=== PATIENT | female | born 1980 | race Caucasian/White ===

== ENCOUNTER 2017-11-19 07:59 | Outpatient (CLI) | payer BC ==
[~2017-11-19] VITALS: Ht 154.9 cm; Wt 46.3 kg
[2017-11-19 08:15] VITALS: BP 110/66
[2017-11-19 08:56] LABS: BASOPHILS % (AUTO) 0 % (0-10); EOSINOPHILS # (AUTO) 0.1 10^3/uL (0.0-0.3); EOSINOPHILS % (AUTO) 2 % (0-10); HEMATOCRIT 41 % (35-52); HEMOGLOBIN 13.7 G/DL (11.5-16.0); LYMPHOCYTES # (AUTO) 1.6 X 10^3 (1.0-4.0); LYMPHOCYTES % (AUTO) 28 % (12-44); MEAN CORPUSCULAR HEMOGLOBIN 29 PG (25-34); MEAN CORPUSCULAR HGB CONC 34 G/DL (32-36); MEAN CORPUSCULAR VOLUME 87 FL (80-99); MEAN PLATELET VOLUME 10.4 FL (7.4-10.4); MONOCYTES # (AUTO) 0.5 X 10^3 (0.0-1.0); MONOCYTES % (AUTO) 8 % (0-12); NEUTROPHILS # (AUTO) 3.6 X 10^3 (1.8-7.8); NEUTROPHILS % (AUTO) 62 % (42-75); PLATELET COUNT 265 10^3/uL (130-400); RED CELL DISTRIBUTION WIDTH 12.8 % (10.0-14.5); WHITE BLOOD COUNT 5.8 10^3/uL (4.3-11.0)
[2017-11-19] MEDS ORDERED: LORA1TAB PO (09:00)
[2017-11-19] MEDS ORDERED: ATEN25TA PO (09:00)
[2017-11-19] MEDS ORDERED: DOCU-143 PO (09:00)
[2017-11-19] MEDS ORDERED: PLEC3TAB PO (09:00)
[2017-11-19] MEDS ORDERED: MULT-974 PO (09:00)
[2017-11-19] MEDS ORDERED: ONDN4T PO (09:00)
[2017-11-19] MEDS ORDERED: LACT1CAP74 PO (09:00)
[2017-11-19] MEDS ORDERED: BCP PO (09:00)
[2017-12-01] MEDS ORDERED: IBUP-844 PO (10:22)
[2017-12-01] MEDS ORDERED: ACHD5005 PO (10:22)
== END 2017-11-19 08:25 | disposition home or self-care (01) ==
LOC: PREOP 07:59
PROVIDERS: ATTEND Obstetrics & Gynecology
DX: Z01.812 Encounter for preprocedural laboratory examination (principal); Z11.2 Encounter for screening for other bacterial diseases; R10.31 Right lower quadrant pain
CPT/HCPCS: 36415; 85025; 87081

== ENCOUNTER 2017-12-01 06:00 | Day surgery (SDC) | payer BC ==
[~2017-12-01] VITALS: Ht 154.9 cm; Wt 46.3 kg
[~2017-12-01 06:00] MED LIST: ATEN25TA PO; BCP PO; DOCU-143 PO; LACT1CAP74 PO; LORA1TAB PO; MULT-974 PO; ONDN4T PO; PLEC3TAB PO
[2017-12-01 06:20] VITALS: BP 121/62
[2017-12-01] MEDS ORDERED: FAMOTIDINE 20MG/2ML IV (PEPCID) ONE (06:29)
[2017-12-01] MEDS ORDERED: SCOPOLAMINE 1.5 MG (TRANSDERM-SCOP) PATCH ONE (06:29)
[2017-12-01] MEDS ORDERED: NS (IVPB) 50 ML ONE (06:29)
[2017-12-01] MEDS ORDERED: ONDANSETRON 4 MG/2 ML (SDV) Z0FRAN ONE ×2 (06:29→08:05)
[2017-12-01] MEDS ORDERED: ceFAZolin 1,000 MG (ANCEF) VIAL ONE (06:29)
[2017-12-01] MEDS: LACTATED RINGERS 1,000 ML IV PRN ×3 (06:53→10:07)
[2017-12-01] MEDS ORDERED: ceFAZolin INJECTION 1,000 MG in NS (IVPB) 50 ML IV ONE (07:00)
[2017-12-01] MEDS ORDERED: SCOPOLAMINE 1.5 MG (TRANSDERM-SCOP) PATCH TOP ONE (07:15)
[2017-12-01] MEDS ORDERED: ONDANSETRON 4 MG/2 ML (SDV) Z0FRAN IV ONE (07:15)
[2017-12-01] MEDS ORDERED: FAMOTIDINE 20MG/2ML IV (PEPCID) IV ONE (07:15)
[2017-12-01] MEDS ORDERED: morphine INJ 10 MG/ML 1ML (SYR OR VIAL) ONE (07:15)
[2017-12-01] MEDS ORDERED: MIDAZOLAM 2 MG/2 ML (VERSED) VIAL ONE (07:18)
[2017-12-01] MEDS ORDERED: BUP/EPI 0.5% 1:200,000 (SENSORCAINE) 30 ML VIAL ONE (07:33)
[2017-12-01] MEDS ORDERED: NS (IVPB) 0 ML ONE (07:33)
[2017-12-01] MEDS ORDERED: VASOPRESSIN INJECTION 20 UNIT/ML VIAL ONE (07:33)
--- NOTE | 2017-12-01 07:47 | Progress Note-Pre Operative ---
Pre-Operative Progress Note H&P Reviewed The H&P was reviewed, patient examined and no changes noted. Date Seen by Provider: Dec 01, 2017 Time Seen by Provider: 07:30 Date H&P Reviewed: Dec 01, 2017 Time H&P Reviewed: 07:30 Pre-Operative Diagnosis: chronic pelvic pain, right lower quadrant pain, endometriosis RENU FERMIN DO Dec 01, 2017 07:47
[2017-12-01] MEDS ORDERED: LIDOCAINE PF 2% 5 ML (XYLOCAINE) VIAL ONE (08:05)
[2017-12-01] MEDS ORDERED: LIDOCAINE JELLY 2% (XYLOCAINE) 5 ML TUBE ONE (08:05)
[2017-12-01] MEDS ORDERED: proPOfol 200 MG/20 ML (DIPRIVAN) VIAL IV ONE (08:05)
[2017-12-01] MEDS ORDERED: ROCURONIUM 10 MG/ML 5 ML SYRINGE IV ONE (08:05)
[2017-12-01] MEDS ORDERED: SEVOFLURANE (ULTANE) 15 ML INHAL SOLN ONE ×9 (08:05→09:55)
[2017-12-01] MEDS ORDERED: GLYCOPYRROLATE 0.2 MG/ML (ROBINUL) 2 ML VIAL ONE (09:43)
[2017-12-01] MEDS ORDERED: NEOSTIGMINE 1 MG/ML 5 ML SYRINGE ONE (09:43)
[2017-12-01] MEDS ORDERED: HYDROmorphone 1 MG/ML (DILAUDID) 1 ML SYRINGE IV PRN (09:45)
[2017-12-01] MEDS ORDERED: MEPERIDINE (DEMEROL) INJ 50 MG/ML IVP PRN (09:45)
[2017-12-01] MEDS ORDERED: HYDROcodone/APAP 5 MG/325 MG (LORTAB) TAB PO PRN (10:00)
[2017-12-01] MEDS ORDERED: KETOROLAC 30 MG/ML VIAL IVP ONE ×2 (10:00)
[2017-12-01] MEDS ORDERED: ONDANSETRON 4 MG/2 ML (SDV) Z0FRAN IVP PRN (10:00)
--- NOTE | 2017-12-01 10:01 | Discharge Inst-Women's Service ---
Discharge Inst-Women's Serv Depart Medication/Instructions New, Converted or Re-Newed RX: RX on Chart Instructions no swimming, bathing (may shower) until incisions are healed Continue OCPs at least another 4 months may have light bleeding, spotting for up to 7-10 days Final Diagnosis endometriosis enteropelvic adhesions Consults/Follow Up Additional Follow Up: Yes (1 week with incision check) Activity Activity: Activity as Tolerated Driving Instructions: No Driving for 24 Hours NO SMOKING: NO SMOKING Nothing Inside Vagina: No Douching Diet Discharge Diet: No Restrictions Symptoms to Report to : Bleeding Excessive, Pain Increased, Fever Over 101 Degrees F, Vaginal Bleeding Increase, Vaginal Discharge Foul, Questions/Concerns For Any Problems or Questions: Contact Your Physician Skin/Wound Care Infection Signs and Symptoms: Increased Redness, Foul Odor of Wound, Increased Drainage, Skin Itchy or Has a Rash, Increased Swelling, Temperature Above 101 F Operative Area Clean and Dry: Keep Incision Clean/Dry Stitches/Lidya/Dermabond: Dermabond Bathing Instructions: RENU Perez DO Dec 01, 2017 10:01
--- NOTE | 2017-12-01 10:03 | Operative Report ---
Operative Report Date of Procedure/Surgery Dec 01, 2017 Surgeon (s) RENU FERMIN DO Assigner (s): Jade Russo, BUSINESS MGR; asst nec to retract important neurovas structures. Post-Operative Diagnosis Endometriosis, probable blocked right tube, subserosal fibroid Procedure Performed Laparoscopy, with resection and fulgeration of endometriosis, myolysis of fibroid, chromotubation, appendectomy, indicated Description of Procedure Anesthesia Type: General Estimated blood loss (mL): minimal Specimen(s) collected/removed peritoneal biopsy, appendix Description of the Procedure With informed consent the patient was taken to the operating room where general anesthesia was found to be adequate. She was prepped and draped in the usual sterile fashion in the dorsolithotomy position. The bladder was drained with a straight cath of clear yellow urine. A speculum was placed in the vagina and the anterior lip of the cervix was grasped with a tenaculum and a uterine manipulator was inserted. Attention was turned to the abdomen. The umbilicus was injected with 0.5% Marcaine and a 5 mm skin incision was made. A Veress needle was inserted and intraabdominal placement was confirmed with a saline drop test and a drop in pressure. The abdomen was insufflated to a maximum pressure of 15 mmHg. A 5 mm trocar was inserted under direct visualization with an Optiview. A survey of the pelvis revealed the above mentioned findings. I now placed two additional 5 mm trocars, lateral to the rectus muscles and avoiding the inferior epigastric vessels. There was a small fibroid in the left fundus near the right tube (submucosal) was lysed with cautery. This did not involve the tube. There was endometriosis in the posterior culdesac and this was elevated and excised. Anything that could not be excised was fulgurated. There was endometriosis on the uterosacral ligaments bilaterally. There was endometriosis in the right ovarian fossa. The ovary was elevated and endometriotic fluid flowed out, indicating an endometrioma. This was fulgurated. The pelvis was now irrigated. I now performed a chromotubation. The left tube spilled easily and quickly. The right tube did not spill. I then blocked the left tube and the right tube still did not flow. There was tubal blockage noted at the cornu and I could not get the dye to flow past the first cm of the tube despite maneuvers. There were adhesions of the bowel overlying the appendix. These were now taken down in a blunt and sharp fashion. The appendix had adhesions on the tip and was tense but did not appear infected. There was likely endometriosis near and surrounding the appendix. An appendectomy was now done. I took down the bowel adhesions and then the appendiceal adhesions with the fabián. I now clamped across the base of the appendix with an endo-JIMMIE. A second endo-JIMMIE was used and the appendix was removed. I now extended the left lower quadrant incision and inserted a 10-12 trocar and removed the appendix with the EndoCatch. The pelvis was now irrigated again. The instruments were removed from the abdomen and the vagina. The fascial incision was closed with a figure of eight stitch of 0-Vicryl and the skin closed with 4-0 Monocryl and swiftset. The patient was taken to the recovery room where general anesthesia was found to be adequate. Sponge, lap, needle and instrument counts were correct times two. Findings of the Procedure There was blood/endometrial tissue flowing from the left tube into the pelvis. There was a small (sub centimeter) subserosal fibroid in the right fundal portion of the uterus near the tube. There was endometriosis noted in the culdesac and along the right (mainly) and left uterosacral ligaments. There was endometriosis and scarring with endometrioma in the right ovarian fossa. There were adhesions in the left pelvis/abdomen near the appendix consistent with chronic appendicitis. The appendix appeared tense, but not infected. The left tube spilled easily, indicating patency. The right tube did not spill , indicating probable blockage of the right tube. Allergies and Home Medications Allergies Coded Allergies: fentanyl (Verified Allergy, Unknown, SHORTNESS OF BREATH, 11/19/17) Home Medications Atenolol 25 Mg Tablet, 12.5 MG PO DAILY, (Reported) TAKE 1/2 OF 25MG TAB Docusate Sodium 100 Mg Capsule, 500 MG PO DAILY, (Reported) Hydrocodone Bit/Acetaminophen 1 Tab Tab, 1 TAB PO Q4H PRN for PAIN-MODERATE Prescribed by: RENU FERMIN on 12/01/17 1022 Ibuprofen 600 Mg Tablet, 600 MG PO Q6HR Prescribed by: RENU FERMIN on 12/01/17 1022 Lactobacillus Combination No.4 1 Each Capsule, 1 EACH PO DAILY, (Reported) Lorazepam 1 Mg Tablet, 1 MG PO BID PRN for ANXIETY, (Reported) Multivitamin 1 Each Tablet, 1 EACH PO DAILY, (Reported) Ondansetron HCl 4 Mg Tab, 4 MG PO Q6H PRN for NAUSEA/VOMITING-1ST LINE, ( Reported) Plecanatide 3 Mg Tablet, 3 MG PO DAILY PRN for CONSTIPATION-1ST LINE, (Reported) [Bcp] , 1 TAB PO DAILY, (Reported) Patient Home Medication List Home Medication List Reviewed: Yes RENU FERMIN DO Dec 01, 2017 10:03
[2017-12-01] MEDS: ONDANSETRON 4 MG/2 ML (SDV) Z0FRAN IVP PRN ×2 (10:05→10:24)
[2017-12-01] MEDS: morphine INJ 10 MG/ML 1ML (SYR OR VIAL) IVP PRN ×2 (10:07→10:24)
[2017-12-01] MEDS ORDERED: ACHD5005 PO (10:22)
[2017-12-01] MEDS ORDERED: IBUP-844 PO (10:22)
--- NOTE | 2017-12-01 10:24 | Anesthesia-General Post-Op ---
General Patient Condition Mental Status/LOC: Same as Preop Cardiovascular: Satisfactory Nausea/Vomiting: Absent Respiratory: Satisfactory Pain: Controlled Complications: Absent Post Op Complications Complications None Follow Up Care/Instructions Patient Instructions None needed. Anesthesia/Patient Condition Patient Condition Patient is doing well, no complaints, stable vital signs, no apparent adverse anesthesia problems. No complications reported per nursing. ROXANA DUBOIS CRNA Dec 01, 2017 10:24
[2017-12-01 10:55] VITALS: BP 109/53
[2017-12-01 11:25] VITALS: BP 96/59
[2017-12-01 11:55] VITALS: BP 106/54
[2017-12-01] MEDS ORDERED: IBUPROFEN 600 MG (MOTRIN) TAB PO SCH (16:00)
== END 2017-12-01 13:21 | disposition home or self-care (01) ==
LOC: SDC 06:00
PROVIDERS: ATTEND Obstetrics & Gynecology
DX: N80.1 Endometriosis of ovary (principal); N80.2 Endometriosis of fallopian tube; N80.3 Endometriosis of pelvic peritoneum; N97.1 Female infertility of tubal origin; K38.0 Hyperplasia of appendix; N83.8 Other noninflammatory disorders of ovary, fallopian tube and broad ligament; R10.2 Pelvic and perineal pain; K59.09 Other constipation
CPT/HCPCS: 84703; 94664